=== PATIENT | female | born 1960 | race Caucasian/White ===

== ENCOUNTER 2016-06-02 13:04 | Emergency (ER) | payer BC ==
[~2016-06-02] VITALS: Ht 175.3 cm; Wt 51.3 kg
[~2016-06-02 13:04] MED LIST: CLON1TAB3 PO; DARVOCET; ETAN50IN SUBCUT; INSUINJ7; INSULIN; IPRAAER5; LEVO175T33 PO; METHPOW77; NOR10T PO; OMEP20CA5 PO; POT20T PO; THYROID MED; cymbalta
[2016-06-02 14:07] LABS: Basophils # (auto) 0 uL; Basophils % (auto) 0.4 % (0.0-2.0); Eosinophils # (auto) 0.5 uL; Eosinophils % (auto) 6.3 % (0.0-7.0); Hematocrit 43.9 % (36.0-46.0); Hemoglobin 14.5 g/dL (12.2-16.2); Lymphocytes # (auto) 1.4 uL; Lymphocytes % (auto) 18.8 % (10.0-50.0); Mean Corpuscular Hemoglobin 31.4 pg (28.0-32.0); Mean Platelet Volume 9.2 fL (7.4-10.4); Monocytes # (auto) 0.3 uL; Monocytes % (auto) 4.5 % (0.0-12.0); Neutrophils # (auto) 5.2 uL; Platelet Count (auto) 287 10^3/uL (140-450); Red Cell Distribution Width 14.2 % (11.6-16.0); White Blood Cell 7.5 10^3/uL (4.4-10.8)
[2016-06-02 14:46] LABS: Albumin 3.4 g/dL (3.4-5.0); Alkaline Phosphatase 90 U/L (45-117); Amylase 45 U/L (25-115); Anion Gap 10 (5-15); Aspartate Aminotransferase 38 U/L (15-37); BUN/Creatinine Ratio 25.6; Bilirubin, Total 0.2 mg/dL (0.2-1.0); Blood Urea Nitrogen 23 mg/dL (7-18); Calcium 8.9 mg/dL (8.5-10.1); Carbon Dioxide 30 mmol/L (21-32); Chloride 101 mmol/L (98-107); GFR African American 84 mL/min; GFR Non-African American 70 mL/min; Glucose 256 mg/dL (74-106); Potassium 4.3 mmol/L (3.5-5.1); Sodium 141 mmol/L (136-145); Total Protein 7.4 g/dL (6.4-8.2)
[2016-06-02] MEDS ORDERED: SODIUM CHLORIDE 0.9% 1,000 ML IV ONE (16:52)
[2016-06-02 19:10] VITALS: BP 132/74
[2016-06-02 19:42] LABS: Urine Bilirubin Negative (Negative); Urine Blood TRACE /uL (Negative); Urine Color Yellow (Yellow); Urine Ketone Negative (Negative); Urine Nitrite Negative (Negative); Urine RBC 9 /hpf (0 - 4); Urine Squamous Epithelial Cell FEW /hpf (<5); Urine Urobilinogen Normal (Negative)
[2016-06-02 19:43] LABS: Urine Glucose 4+ mg/dL (Normal)
[2016-06-02] MEDS ORDERED: MAGNESIUM CITRATE SOLUTION 300 ML BTL PO ONE (20:15)
[2016-06-02] MEDS ORDERED: LACTULOSE 20Gm/30ML SOLN PO ONE (20:15)
[2016-06-02] MEDS ORDERED: HYDROcodone-ACET 5/325MG TAB PO ONE (20:15)
[2016-06-02] MEDS ORDERED: ONDANSETRON ODT 4 MG TAB PO ONE (20:30)
== END 2016-06-02 21:48 | disposition left against medical advice (07) ==
LOC: ER 13:04
DX: K59.00 Constipation, unspecified (principal); R10.9 Unspecified abdominal pain; F12.10 Cannabis abuse, uncomplicated; E11.22 Type 2 diabetes mellitus with diabetic chronic kidney disease; N18.9 Chronic kidney disease, unspecified; J44.9 Chronic obstructive pulmonary disease, unspecified; Z87.11 Personal history of peptic ulcer disease; J45.909 Unspecified asthma, uncomplicated; M19.90 Unspecified osteoarthritis, unspecified site; Z86.73 Personal history of transient ischemic attack (TIA), and cerebral infarction without residual deficits; E07.9 Disorder of thyroid, unspecified; Z79.4 Long term (current) use of insulin; Z79.899 Other long term (current) drug therapy
CPT/HCPCS: 36415; 71010; 74176; 80053; 81001; 82150; 82962; 83690; 84484; 85025; 93005; 96360; 99285; J7030; Q0162

== ENCOUNTER 2016-07-29 18:32 | Emergency (ER) | payer BC ==
[~2016-07-29] VITALS: Ht 175.3 cm; Wt 55.3 kg
[~2016-07-29 18:32] MED LIST changes: -OMEP20CA5 PO; +OMEP20CA74 PO
[2016-07-29 21:14] VITALS: BP 98/64
[2016-07-29] MEDS ORDERED: HYDROcodone-ACET 10/325MG TAB PO ONE (22:45)
[2016-07-29] MEDS ORDERED: ONDANSETRON ODT 4 MG TAB PO ONE (23:00)
== END 2016-07-29 23:46 | disposition home or self-care (01) ==
LOC: ER 18:34
DX: S52.021A Displaced fracture of olecranon process without intraarticular extension of right ulna, initial encounter for closed fracture (principal); M25.552 Pain in left hip; M25.532 Pain in left wrist; M25.531 Pain in right wrist; M25.551 Pain in right hip; M19.90 Unspecified osteoarthritis, unspecified site; J44.9 Chronic obstructive pulmonary disease, unspecified; N18.9 Chronic kidney disease, unspecified; F12.10 Cannabis abuse, uncomplicated; E11.22 Type 2 diabetes mellitus with diabetic chronic kidney disease; E07.9 Disorder of thyroid, unspecified; Z86.73 Personal history of transient ischemic attack (TIA), and cerebral infarction without residual deficits; Z79.899 Other long term (current) drug therapy; Z90.49 Acquired absence of other specified parts of digestive tract; Z98.51 Tubal ligation status; Z95.0 Presence of cardiac pacemaker; Z90.710 Acquired absence of both cervix and uterus; Z79.4 Long term (current) use of insulin; W01.0XXA Fall on same level from slipping, tripping and stumbling without subsequent striking against object, initial encounter; Y93.01 Activity, walking, marching and hiking; Y92.89 Other specified places as the place of occurrence of the external cause; Y99.8 Other external cause status
CPT/HCPCS: 29105; 73070; 73090; 73100; 73501; 99284; Q0162

== ENCOUNTER 2016-08-20 17:10 | Emergency (ER) | payer SELFPAY ==
[~2016-08-20] VITALS: Ht 175.3 cm; Wt 56.7 kg
[2016-08-20 18:06] LABS: Basophils # (auto) 0 uL; Basophils % (auto) 0.4 % (0.0-2.0); CONDITION Y; DEFINITIVE SEE PRINTOUT; Eosinophils # (auto) 0.2 uL; Hemoglobin 8.3 g/dL (12.2-16.2); Lymphocytes # (auto) 1.9 uL; Mean Corpuscular Hemoglobin 28.2 pg (28.0-32.0); Mean Corpuscular Hgb Conc. 31.9 g/dL (32.0-36.0); Mean Corpuscular Volume 88.5 fL (80.0-100.0); Mean Platelet Volume 8.9 fL (7.4-10.4); Monocytes # (auto) 0.2 uL; Monocytes % (auto) 2.8 % (0.0-12.0); Neutrophils % (auto) 63.8 % (37.0-80.0); Platelet Count (auto) 512 10^3/uL (140-450); Red Cell Distribution Width 18.8 % (11.6-16.0); White Blood Cell 6.3 10^3/uL (4.4-10.8)
[2016-08-20 18:27] LABS: Albumin 2.6 g/dL (3.4-5.0); BUN/Creatinine Ratio 29.2; Bilirubin, Total 0.2 mg/dL (0.2-1.0); Calcium 8.1 mg/dL (8.5-10.1); Potassium 4.9 mmol/L (3.5-5.1); Total Protein 6.2 g/dL (6.4-8.2)
[2016-08-20 21:42] VITALS: BP 102/63
== END 2016-08-21 01:30 | disposition left against medical advice (07) ==
LOC: ER 17:21
DX: R79.9 Abnormal finding of blood chemistry, unspecified (principal); Z53.21 Procedure and treatment not carried out due to patient leaving prior to being seen by health care provider
CPT/HCPCS: 36415; 80053; 82962; 85025

== ENCOUNTER 2016-08-31 11:46 | Emergency (ER) | payer BC ==
[~2016-08-31] VITALS: Ht 175.3 cm; Wt 55.3 kg
[2016-08-31 12:43] LABS: CONDITION Y; DEFINITIVE SEE PRINTOUT; Eosinophils # (auto) 0.3 uL; Eosinophils % (auto) 4.3 % (0.0-7.0); Mean Corpuscular Hemoglobin 26.7 pg (28.0-32.0); White Blood Cell 6.8 10^3/uL (4.4-10.8)
[2016-08-31 12:46] LABS: Basophils # (auto) 0.1 uL; Basophils % (auto) 0.8 % (0.0-2.0); Hematocrit 34.5 % (36.0-46.0); Hemoglobin 11.1 g/dL (12.2-16.2); Lymphocytes # (auto) 2.1 uL; Lymphocytes % (auto) 31.2 % (10.0-50.0); Mean Corpuscular Hgb Conc. 32.1 g/dL (32.0-36.0); Mean Corpuscular Volume 83.2 fL (80.0-100.0); Mean Platelet Volume 8.9 fL (7.4-10.4); Monocytes # (auto) 0.4 uL; Monocytes % (auto) 6.4 % (0.0-12.0); Neutrophils # (auto) 3.9 uL; Neutrophils % (auto) 57.3 % (37.0-80.0); Platelet Count (auto) 463 10^3/uL (140-450); Red Cell Distribution Width 20.1 % (11.6-16.0)
[2016-08-31 13:10] LABS: Bilirubin, Total 0.2 mg/dL (0.2-1.0); Calcium 8.5 mg/dL (8.5-10.1); Potassium 3.5 mmol/L (3.5-5.1); Total Protein 7.3 g/dL (6.4-8.2)
[2016-08-31] MEDS ORDERED: DEXTROSE 10% 0 ML IV ONE (15:46)
[2016-08-31] MEDS ORDERED: DEXTROSE 50% SYRINGE 50 ML IV ONE (15:50)
[2016-08-31] MEDS ORDERED: SODIUM CHLORIDE 0.9% 1,000 ML IV ONE (15:51)
[2016-08-31] MEDS ORDERED: METOCLOPRAMIDE HCL 5MG/ml INJ 2ml VIAL IV ONE (16:00)
[2016-08-31] MEDS ORDERED: MEPERIDINE HCL (50 MG/ML) 1 ML VIAL IV ONE (16:00)
[2016-08-31 18:58] LABS: Urine Bilirubin Negative (Negative); Urine Blood TRACE /uL (Negative); Urine Color Yellow (Yellow); Urine Ketone Negative (Negative); Urine Nitrite Negative (Negative); Urine RBC 7 /hpf (0 - 4); Urine Squamous Epithelial Cell MOD /hpf (<5); Urine Urobilinogen Normal (Negative); Urine pH 5.5 (5.0-8.0)
[2016-08-31 19:01] LABS: Urine Glucose 4+ mg/dL (Normal)
[2016-08-31 20:15] VITALS: BP 115/66
[2016-08-31] MEDS ORDERED: ONDANSETRON HCL 4 MG/2 ML VIAL IV ONE (20:45)
[2016-08-31] MEDS ORDERED: HYDROcodone-ACET 10/325MG TAB PO ONE (21:00)
[2016-08-31] MEDS ORDERED: BACITRACIN TOP OINT 1 UD PKG TOP ONE ×2 (22:08→22:15)
== END 2016-08-31 21:34 | disposition home or self-care (01) ==
LOC: ER 11:46
DX: J44.9 Chronic obstructive pulmonary disease, unspecified (principal); E11.9 Type 2 diabetes mellitus without complications; E03.9 Hypothyroidism, unspecified; E46 Unspecified protein-calorie malnutrition; L89.90 Pressure ulcer of unspecified site, unspecified stage; M06.9 Rheumatoid arthritis, unspecified; F12.10 Cannabis abuse, uncomplicated; M19.90 Unspecified osteoarthritis, unspecified site; N18.9 Chronic kidney disease, unspecified; Z86.73 Personal history of transient ischemic attack (TIA), and cerebral infarction without residual deficits; Z98.51 Tubal ligation status; Z90.89 Acquired absence of other organs; Z90.710 Acquired absence of both cervix and uterus; Z95.0 Presence of cardiac pacemaker
CPT/HCPCS: 36415; 71020; 80053; 80307; 81001; 82962; 83735; 84443; 84484; 85025; 86850; 86900; 86901; 93005; 94761; 96361; 96374; 96375; 99285; J2175; J2405; J2765; J7030; J7042